=== PATIENT | male | born 1970 | race Caucasian/White ===

== ENCOUNTER → 2016-11-30 | Day surgery (SDC) | payer BC ==
[~2016-11-30] MED LIST: ADAL40PE SQ; BUDE3CAP15 PO; CIPR500T94 PO; HYDR-2678 PO; IV RINGERS,LACTATED 1000ML 1,000 ML IV SCH; LIDOCAINE 2% PF Vial for OR 5 ML VIAL. ONE; MESA500C PO; OXYC-328 PO; PHEN-318 PO; PROPOFOL 40 ML IV ONE; TAMS0.4C97 PO
--- NOTE | 2016-11-30 08:44 | PDOC1 ---
HISTORY & PHYSICAL H&P Pee Timmons [id number] 1970 10/27/2016 03:10 PM 02/28 [facility], [facility] OUR PATIENTS COM[facility] [address] [place] [address] Ph. [phone] Patient: Pee Timmons Date of : 1970 Date: 10/27/2016 3:10 PM Visit Type: Office Visit This 46 year old male presents for Crohn's Disease and Fatigue. History of Present Illness: 1. Crohn's Disease Risk factors/co-morbidities include history of Crohn's. Associated symptoms include abdominal pain. Additional information: Still has some days with abdominal cramps and occasional vomiting.. 2. Fatigue Additional information: Still has significant fatigue and weakness more so when he takes Humira and lasts for 3 to 4 days. INTAKE COMMENTS: Intake Comments: Nurse Note: the pt is here today for a follow-up for his Crohn' s disease, the pt is currently taking Humira. The pt states that he is having issues with fatigue after taking the Humira. PROBLEM LIST: Problem Description Onset Date Crohn's disease of both small and large intestine with complication 11/07/2015 Crohn's disease of both small and large intestine with other complication 2015 Crohn's disease of small AND large intestines 06/09/2012 Crohn's disease of both small and large intestine with abscess 01/17/2015 PAST MEDICAL/SURGICAL HISTORY (Detailed) Disease/disorder Onset Date Management Date Comments Right colectomy Terminal ileal resection colonoscopy 04/06/2007 colonoscopy 05/27/2004 EGD 12/20/2001 colonoscopy 04/12/2001 colonoscopy 07/02/2010 Acid reflux Crohn's disease Kidney stones lithotripsy DIAGNOSTICS HISTORY: Test Ordered Interpretation Result completed Colonoscopy 06/25/2010 Evidence of narrowing at the ileo-colonic anastomosis and some ulceration of the area (biopsy). BX: colonic mucosa with prominent lymphoid aggregate formation with erosion and ulceration. Mild architectural distortion is present-KR 07/02/2010 Colonoscopy 06/09/2012 abnormal Imp: stricture at the ileo-colonic anastomisis, multiple apthous ulcers in the ilio-colonic anastomsis compatible with Crohn's disease(bx), Grade 2 internal hemorrhoids, BX: Chronic active colitis with associated ulceration 06/15/[address] WITH Contrast 09/16/2012 Imp: The abscess noted previously shows signs of interval percutaneous drainage. A small 1.5cm residual abscess is noted. Cholelithiasis is again seen. Bilateral renal calculi are again noted. No obstruction is identified. Segmental wall thickening is seen in several bowel loops consistent with the history of Crohn' s disease. 09/19/2012 Upper GI X-ray Series with Small Bowel Follow Through 08/29/2013 abnormal Imp: postop abdomen with evidence of partial right colectomy and ileocolic anastomosis. Unremarkable study taking into account limitations during fluoroscopy as discussed above. 09/07/2013 Colonoscopy 01/08/2014 abnormal Imp: evidene of nodularity and erythema just at the anastomotic site. Small anastomatic opening. Could not enter the ileum. Mucosa of the ileum looked unremarkable from the distant throught the opening. 12/06/2013 Test Ordered Ordering Comments Modifier Colonoscopy 06/25/2010 Colonoscopy 06/09/[address] WITH Contrast 09/16/2012 Upper GI X-ray Series with Small Bowel Follow Through 08/29/2013 Colonoscopy 01/08/2014 Medications (Active): Started Medication Directions Instruction Stopped 07/09/2016 Humira Pen 40 mg/0.8 mL subcutaneous inject 0.8 milliliter by subcutaneous route every 2 weeks 04/15/2015 Lortab 7.5 mg-325 mg tablet take 1 tablet by oral route every 3 hours as needed for pain 03/24/2009 Tylenol 325 mg Tab take 1 tablet (325MG) by ORAL route every 4 hours as needed Allergies: Ingredient Reaction Medication Name Comment INFLIXIMAB Remicade AMOXICILLIN PENICILLINS REVIEW OF SYSTEMS System Neg/Pos Details Constitutional Negative Chills, fever, malaise and weight loss. ENMT Negative Sore throat. Eyes Negative Double vision. Respiratory Negative Dyspnea and wheezing. Cardio Negative Chest pain and irregular heartbeat/palpitations. GI Positive Abdominal pain, See HPI. GI Negative See HPI. Negative Dysuria and hematuria. Endocrine Negative Cold intolerance and heat intolerance. Psych Negative Anxiety. Integumentary Negative Hives and rash. MS Negative Joint pain. Les/Lymph Negative Easy bleeding and easy bruising. Allergic/Immuno Negative Food allergies. VITAL SIGNS Time BP mm/Hg Pulse /min Resp /min Temp F Ht ft Ht in Ht cm Wt lb Wt kg BMI kg/ m2 BSA m2 O2 Sat% 3:42 PM 128/74 83 98.2 5.0 11.00 180.34 205.00 92.986 28.59 97 Time Measured by 3:42 PM Payton Naylor PHYSICAL EXAM: Exam Findings Details Constitutional Normal Well developed. Eyes Normal Conjunctiva - Right: Normal, Left: Normal. Sclera - Right: Normal, Left: Normal. Nasopharynx Normal Lips/teeth/gums - Normal. Neck Exam Normal Inspection - Normal. Thyroid gland - Normal. Respiratory Normal Inspection - Normal. Auscultation - Normal. Cardiovascular Normal Regular rate and rhythm. No murmurs, gallops, or rubs. Vascular Normal Pulses - Carotids: Normal, Femoral: Normal, Dorsalis pedis: Normal. Abdomen Normal Inspection - Normal. Anterior palpation - No guarding. No abdominal tenderness. No hepatic enlargement. No splenic enlargement. No hernia. No ascites. Skin Normal Inspection - Normal. Extremity Normal No edema. Psychiatric * Oriented to time, place, person and situation. Psychiatric Normal Appropriate mood and effect. Assessment/Plan # Detail Type Description 1. Assessment Crohn's disease of both small and large intestine with intestinal obstruction (K50.812). Patient Plan Colonoscopy and balloon dilation of anastomotic stricture. Take vitamin B12 5000 unit SL daily. Plan Orders Further diagnostic evaluations ordered today include(s) Colonoscopy to be performed today. He is to schedule a follow-up visit with Janine Rashid MD upon completion of work-up Electronically signed by: Janine Rashid MD 10/27/2016 03:43 PM Document generated by: Janine Rashid 10/27/2016 03:43 PM Bladimir Sanders MD, Family Practice; Zac Knox MD Internal Medicine; Lavonne Epps MD, Internal Medicine; Remi Rashid MD Internal Medicine; Janine Rashid MD, Gastroenterology; Kelvin Lopez MD, Rheumatology, [facility] Cle[facility], Physical Medicine/Rehab Crystal Hanson APRN ------ 11/30/16 Patient seen and examined. No change in H&P JANINE RASHID MD Nov 30, 2016 08:44
[2016-11-30 09:27] VITALS: BP 118/72
== END | disposition home or self-care (01) ==
LOC: ENDOS 07:40
PROVIDERS: ATTEND Internal Medicine Gastroenterology
DX: K50.812 Crohn's disease of both small and large intestine with intestinal obstruction (principal); Z98.0 Intestinal bypass and anastomosis status; K21.9 Gastro-esophageal reflux disease without esophagitis; Z98.890 Other specified postprocedural states; Z87.442 Personal history of urinary calculi; Z72.89 Other problems related to lifestyle; Z88.1 Allergy status to other antibiotic agents; Z88.8 Allergy status to other drugs, medicaments and biological substances
CPT/HCPCS: 45386; J2704; J2001

== ENCOUNTER → 2017-08-30 | Day surgery (SDC) | payer BC ==
[~2017-08-30] MED LIST changes: -ADAL40PE SQ; -BUDE3CAP15 PO; -CIPR500T94 PO; -HYDR-2678 PO; +IV RINGERS,LACTATED 1000ML 1,000 ML IV; -IV RINGERS,LACTATED 1000ML 1,000 ML IV SCH; +LIDOCAINE 1% PF 2 ML VIAL. ID; -LIDOCAINE 2% PF Vial for OR 5 ML VIAL. ONE; -MESA500C PO; +MORPHINE SULFATE 2 MG/ML DISP.SYRIN. IV; +ONDANSETRON PF 4 MG/2 ML VIAL. IV; -OXYC-328 PO; -PHEN-318 PO; +PROCHLORPERAZINE 10 MG/2 ML VIAL. IV; +PROPOFOL 40 ML IV; -PROPOFOL 40 ML IV ONE; -TAMS0.4C97 PO; +fentaNYL PF VIAL 100 MCG/2 ML VIAL IV
[2017-08-30] MEDS: IV RINGERS,LACTATED 1000ML 1,000 ML IV (07:36)
== END | disposition home or self-care (01) ==
LOC: ENDOS 06:57
DX: K91.89 Other postprocedural complications and disorders of digestive system (principal); K50.80 Crohn's disease of both small and large intestine without complications; K21.9 Gastro-esophageal reflux disease without esophagitis; Z87.442 Personal history of urinary calculi; Z90.49 Acquired absence of other specified parts of digestive tract; Z98.890 Other specified postprocedural states; Z88.0 Allergy status to penicillin; Z88.1 Allergy status to other antibiotic agents; Z88.8 Allergy status to other drugs, medicaments and biological substances; Z79.899 Other long term (current) drug therapy; Y83.2 Surgical operation with anastomosis, bypass or graft as the cause of abnormal reaction of the patient, or of later complication, without mention of misadventure at the time of the procedure; Y73.8 Miscellaneous gastroenterology and urology devices associated with adverse incidents, not elsewhere classified
CPT/HCPCS: 43235; 45380; 45386; J2704

== ENCOUNTER 2017-10-13 06:34 | Day surgery (SDC) | payer BC ==
[~2017-10-13] VITALS: Ht 180.3 cm; Wt 98.0 kg
[~2017-10-13 06:34] MED LIST changes: +ACET325T9 PO; +ADAL40PE SQ; +BUDE3CAP15 PO; +BUPIVACAINE-EPI 0.25%-1:200000 50 ML VIAL. ONE; +CIPR500T94 PO; +HYDR-2678 PO; +IOHEXOL 300 MG/ML 100ML VIAL. ONE; -IV RINGERS,LACTATED 1000ML 1,000 ML IV; +IV RINGERS,LACTATED 1000ML 1,000 ML IV SCH; -LIDOCAINE 1% PF 2 ML VIAL. ID; +LIDOCAINE 1% PF 2 ML VIAL. ID PRN; +MESA500C PO; -MORPHINE SULFATE 2 MG/ML DISP.SYRIN. IV; +MORPHINE SULFATE 2 MG/ML VIAL. IV PRN; -ONDANSETRON PF 4 MG/2 ML VIAL. IV; +ONDANSETRON PF 4 MG/2 ML VIAL. IV PRN; +OXYC-328 PO; +PHEN-318 PO; -PROCHLORPERAZINE 10 MG/2 ML VIAL. IV; +PROCHLORPERAZINE 10 MG/2 ML VIAL. IV PRN; -PROPOFOL 40 ML IV; +SURGICEL HEMOSTAT 4X8 EACH. ONE; +TAMS0.4C97 PO; +TEST200V3 IM; -fentaNYL PF VIAL 100 MCG/2 ML VIAL IV; +fentaNYL PF VIAL 100 MCG/2 ML VIAL IV PRN
[2017-10-13] MEDS ORDERED: IV RINGERS,LACTATED 1000ML 1,000 ML IV SCH (07:00)
[2017-10-13] MEDS ORDERED: fentaNYL PF VIAL 100 MCG/2 ML VIAL IV PRN (07:00)
[2017-10-13] MEDS ORDERED: ONDANSETRON PF 4 MG/2 ML VIAL. IV PRN (07:00)
[2017-10-13] MEDS ORDERED: PROCHLORPERAZINE 10 MG/2 ML VIAL. IV PRN (07:00)
[2017-10-13] MEDS ORDERED: LIDOCAINE 1% PF 2 ML VIAL. ID PRN (07:00)
[2017-10-13] MEDS ORDERED: MORPHINE SULFATE 2 MG/ML VIAL. IV PRN (07:00)
[2017-10-13] MEDS ORDERED: FAMOTIDINE 20 MG/2 ML VIAL ONE (07:14)
[2017-10-13] MEDS ORDERED: DEXAMETHASONE SOD PHOS 20 MG/5 ML VIAL. ONE (07:14)
[2017-10-13] MEDS ORDERED: fentaNYL PF VIAL 100 MCG/2 ML VIAL ONE ×2 (07:14→09:46)
[2017-10-13] MEDS ORDERED: PROPOFOL 20 ML IV ONE (07:14)
[2017-10-13] MEDS ORDERED: LIDOCAINE 2% PF Vial for OR 5 ML VIAL. ONE (07:14)
[2017-10-13] MEDS ORDERED: MIDAZOLAM HCL/PF 2 MG/2 ML VIAL. ONE (07:14)
[2017-10-13] MEDS ORDERED: ONDANSETRON PF 4 MG/2 ML VIAL. ONE (07:14)
[2017-10-13] MEDS ORDERED: ROCURONIUM 50 MG/5 ML VIAL. ONE (07:15)
[2017-10-13] MEDS ORDERED: PHENYLEPHRINE in 0.9% NACL PF 1 MG/10 ML SYRINGE. IV ONE (09:01)
[2017-10-13] MEDS ORDERED: NEOSTIGMINE METHYLSULFATE 5 MG/5 ML SYRINGE. ONE (09:10)
[2017-10-13] MEDS ORDERED: GLYCOPYRROLATE 1 MG/5 ML VIAL. ONE (09:11)
[2017-10-13] MEDS ORDERED: SEVOFLURANE 31 TO 60 MINUTES. IH ONE (09:21)
--- NOTE | 2017-10-13 09:27 | PDOC4 ---
Operative Note Operative Note Date: 10/13/2017 Preoperative diagnosis: Chronic cholecystitis Postoperative diagnosis: Same Procedure: Laparoscopic cholecystectomy Surgeon: Travon Specimen: Gallbladder Dictation: Patient is a 47-year-old male who is had right upper quadrant abdominal pain ultrasound showing thickened gallbladder wall consistent with cholecystitis procedure lap scopic cholecystectomy was explained to the patient detail was benefits were also discussed including bleeding infection injury to intra-abdominal contents possibly necessitating further or open operations alternatives to this procedure also discussed with the patient who seemed understanding gave both verbal and written consent had procedure performed. Patient was taken to the operating room placed in supine position general anesthesia was initiated once patient was asleep and intubated his abdomen was prepped and draped usual sterile fashion using ChloraPrep. An area in the left upper quadrant was injected with quarter percent Marcaine with epinephrine and a 5 mm Visiport was placed under direct visualization into the abdomen creating pneumoperitoneum. A 5 mm camera was then placed within the abdomen and inspected was noted that there were some adhesions in the mid abdomen but there was plenty of room in the right upper quadrant a 5 mm port was placed in the right lateral abdomen under direct visualization a second port was also placed in the right mid abdomen using Endo Masha scissors the adhesions were taken down around the umbilicus within the abdomen with sharp dissection once this was complete a 11 mm port was placed at the umbilicus under direct visualization the camera was moved to the umbilical port a 5 mm port was then placed in the epigastric area under direct visualization. The dome of the gallbladder was grasped retracted cephalad the infundibulum the gallbladder was grasped retracted laterally exposing the triangle adherent tissues the triangle are taken down with blunt dissection exposing the cystic duct and cystic artery both were doubly clipped and transected the gallbladder was taken off the liver with hook left cautery placed in Endo Catch bag and removed from the umbilicus right upper quadrant was irrigated and suctioned dry hemostasis didn't be appropriate and the pneumoperitoneum was reduced all ports removed fascial defect at the umbilicus was closed [id number] Vicryl suture and the skin was approximated all port sites 4 septic or Monocryl Mastisol Steri-Strips and Band-Aids were applied as dressings. Patient was waken next made in the operating room taken recovery in stable condition all sponge instrument needle counts listed as correct estimated blood loss 5 mL JUNI MORALEZ MD Oct 13, 2017 09:27
--- NOTE | 2017-10-13 09:30 | DISCH ---
DISCHARGE INSTRUCTIONS Condition on Discharge Condition on Discharge: Stable Activity After Discharge Activity Instructions for Disc: Avoid exertion Other activity instructions: no lifting greater than 20 pounds for 2 weeks Diet after Discharge Diet after Discharge: Low Fat Wound Incision Care Other wound/incision instructi: May shower in 24 hours Contacting the after DC Call your doctor for: If your condition worsens Follow-Up Follow up with: Dr. Moralez in 2 weeks JUNI MORALEZ MD Oct 13, 2017 09:30
[2017-10-13] MEDS ORDERED: OXYC-323 PO (09:36)
[2017-10-13] MEDS ORDERED: oxyCODONE/APAP 5/325 1 TAB TABLET PO ONE ×2 (09:45)
[2017-10-13] MEDS: fentaNYL PF VIAL 100 MCG/2 ML VIAL IV PRN ×2 (09:58→10:06)
[2017-10-13 10:45] VITALS: BP 134/72
== END 2017-10-13 10:45 | disposition home or self-care (01) ==
LOC: SURG 06:34
PROVIDERS: ATTEND Surgery
DX: K81.1 Chronic cholecystitis (principal); K21.9 Gastro-esophageal reflux disease without esophagitis; E66.9 Obesity, unspecified; Z90.49 Acquired absence of other specified parts of digestive tract; Z88.8 Allergy status to other drugs, medicaments and biological substances; Z88.1 Allergy status to other antibiotic agents; Z88.0 Allergy status to penicillin; Z98.890 Other specified postprocedural states; Z79.899 Other long term (current) drug therapy; Z72.89 Other problems related to lifestyle
CPT/HCPCS: 47562; J1100; J1956; J2001; J2250; J2370; J2405; J2704; J2710; J3010; J3490; J7030; J7120; S0028; A7015; Q9967